=== PATIENT | female | born 1945 | race Caucasian/White ===

== ENCOUNTER 2020-06-08 01:18 | Inpatient (IN) | payer MEDICARE ==
[~2020-06-08] VITALS: Ht 162.6 cm; Wt 44.9 kg
[2020-06-08] MEDS ORDERED: ALBUTEROL1.25 MG/3 INH (03:51)
[2020-06-08] MEDS ORDERED: FLUOXETINE HCL40 MG PO (04:12)
[2020-06-08] MEDS ORDERED: LIPITOR80 MG PO (04:13)
[2020-06-08] MEDS ORDERED: ALENDRONATE SOD70 MG PO (04:14)
[2020-06-08] MEDS ORDERED: NITRO-DUR1 EAC3 TOP (04:14)
[2020-06-08] MEDS ORDERED: BUPROPION HCL100 MG PO (04:15)
[2020-06-08] MEDS ORDERED: TIKOSYN125 MCG PO (04:15)
[2020-06-08] MEDS ORDERED: DOXEPIN HCL75 MG PO (04:15)
[2020-06-08] MEDS ORDERED: SINGULAIR10 MG PO (04:16)
[2020-06-08] MEDS ORDERED: PROAIR DIGIHAL90 MCG INH (04:17)
[2020-06-08] MEDS ORDERED: CLARITIN10 M2 PO (04:17)
[2020-06-08] MEDS ORDERED: ELIQUIS2.5 MG PO (04:17)
[2020-06-08] MEDS ORDERED: DALIRESP500 MCG PO (04:17)
[2020-06-08] MEDS ORDERED: BREO ELLIPTA 21 EACH INH (04:18)
[2020-06-08 05:04] LABS: HEMOGLOBIN 9.3 gm/dl (12.3-15.3); RED BLOOD COUNT 3.6 M/UL (4.00-5.10); WHITE BLOOD COUNT 25.7 K/UL (4.5-11.0)
[2020-06-09 06:26] LABS: HEMOGLOBIN 8.5 gm/dl (12.3-15.3); RED BLOOD COUNT 3.44 M/UL (4.00-5.10)
[2020-06-09 06:29] LABS: WHITE BLOOD COUNT 18.9 K/UL (4.5-11.0)
--- NOTE | 2020-06-09 14:23 | NUR ---
06/09/20 1347 CALLED PATIENTS EMERGENCY CONTACT, SLIME DHALIWAL ([employer]). NOTIFIED SLIME OF PATIENTS CONDITION AND DYSRHYTHMIAS. SLIME STATED THAT SHE WANTS TO KEEP PATIENT A FULL CODE.
[2020-06-10 05:07] LABS: HEMOGLOBIN 8.9 gm/dl (12.3-15.3); RED BLOOD COUNT 3.45 M/UL (4.00-5.10)
[2020-06-10 05:08] LABS: WHITE BLOOD COUNT 27.1 K/UL (4.5-11.0)
[2020-06-10 05:19] LABS: BUN/CREATININE RATIO 16 (0-10)
[2020-06-11 05:22] LABS: HEMOGLOBIN 8.6 gm/dl (12.3-15.3); RED BLOOD COUNT 3.32 M/UL (4.00-5.10); WHITE BLOOD COUNT 23.1 K/UL (4.5-11.0)
[2020-06-11 05:34] LABS: BUN/CREATININE RATIO 22 (0-10)
[2020-06-12 03:52] LABS: HEMOGLOBIN 8.3 gm/dl (12.3-15.3); RED BLOOD COUNT 3.29 M/UL (4.00-5.10); WHITE BLOOD COUNT 20.6 K/UL (4.5-11.0)
[2020-06-12 04:03] LABS: BUN/CREATININE RATIO 27 (0-10)
[2020-06-13 05:27] LABS: RED BLOOD COUNT 3.16 M/UL (4.00-5.10); WHITE BLOOD COUNT 15.6 K/UL (4.5-11.0)
[2020-06-13 05:32] LABS: BUN/CREATININE RATIO 34 (0-10)
[2020-06-14 05:02] LABS: HEMOGLOBIN 8.6 gm/dl (12.3-15.3); RED BLOOD COUNT 3.4 M/UL (4.00-5.10); WHITE BLOOD COUNT 25.6 K/UL (4.5-11.0)
[2020-06-14 05:12] LABS: BUN/CREATININE RATIO 40 (0-10)
[2020-06-15 05:15] LABS: HEMOGLOBIN 8.6 gm/dl (12.3-15.3); RED BLOOD COUNT 3.39 M/UL (4.00-5.10); WHITE BLOOD COUNT 20.5 K/UL (4.5-11.0)
[2020-06-15 05:41] LABS: BUN/CREATININE RATIO 41 (0-10)
--- NOTE | 2020-06-15 16:12 | NUR ---
LETTER STATING THAT PT IS MEDICALLY UNABLE TO MAKE DECISIONS SIGNED BY DR KOVACS WAS GIVEN TO FAMILY (NIECE SLIME) 06/15/20
[2020-06-16 05:20] LABS: HEMOGLOBIN 8.7 gm/dl (12.3-15.3); RED BLOOD COUNT 3.39 M/UL (4.00-5.10); WHITE BLOOD COUNT 17.4 K/UL (4.5-11.0)
[2020-06-16 05:59] LABS: BUN/CREATININE RATIO 29 (0-10)
[2020-06-17 04:40] LABS: HEMOGLOBIN 8.4 gm/dl (12.3-15.3); RED BLOOD COUNT 3.3 M/UL (4.00-5.10); WHITE BLOOD COUNT 14.7 K/UL (4.5-11.0)
[2020-06-17 04:58] LABS: BUN/CREATININE RATIO 32 (0-10)
[2020-06-18 05:02] LABS: RED BLOOD COUNT 3.14 M/UL (4.00-5.10); WHITE BLOOD COUNT 14.2 K/UL (4.5-11.0)
[2020-06-18 05:53] LABS: BUN/CREATININE RATIO 31 (0-10)
[2020-06-19 05:04] LABS: HEMOGLOBIN 8.1 gm/dl (12.3-15.3); RED BLOOD COUNT 3.17 M/UL (4.00-5.10); WHITE BLOOD COUNT 14.4 K/UL (4.5-11.0)
[2020-06-19 05:28] LABS: BUN/CREATININE RATIO 34 (0-10)
--- NOTE | 2020-06-19 17:46 | NUR ---
PT DESAT <60% SUSTAINED; PT PLACED ON BIPAP AND FAMILY NOTIFIED OF DECLINING IN PT STATUS; FAMILY REQUESTING COMFORT MEASURES ONLY; DR GOODE NOTIFIED OF FAMILY WISHES AND COMFORT CARE ORDERS PLACED.
== END 2020-06-21 11:07 | disposition expired | DRG 870 ==
LOC: CCU 01:18
PROVIDERS: Internal Medicine; Internal Medicine Pulmonary Disease; ADMIT Internal Medicine
PROC: 5A1955Z Respiratory Ventilation, Greater than 96 Consecutive Hours (ICD-10-PCS; principal; 2020-06-08)
PROC: 3E033XZ Introduction of Vasopressor into Peripheral Vein, Percutaneous Approach (ICD-10-PCS; 2020-06-08)
PROC: 5A2204Z Restoration of Cardiac Rhythm, Single (ICD-10-PCS; 2020-06-10)
DX: A41.01 Sepsis due to Methicillin susceptible Staphylococcus aureus (principal); R65.21 Severe sepsis with septic shock; J96.21 Acute and chronic respiratory failure with hypoxia; E43 Unspecified severe protein-calorie malnutrition; J96.22 Acute and chronic respiratory failure with hypercapnia; I50.23 Acute on chronic systolic (congestive) heart failure; J13 Pneumonia due to Streptococcus pneumoniae; J15.211 Pneumonia due to Methicillin susceptible Staphylococcus aureus; I48.19 Other persistent atrial fibrillation; Z68.1 Body mass index [BMI] 19.9 or less, adult; E87.2 Acidosis; J44.1 Chronic obstructive pulmonary disease with (acute) exacerbation; J44.0 Chronic obstructive pulmonary disease with (acute) lower respiratory infection; I42.9 Cardiomyopathy, unspecified; Z51.5 Encounter for palliative care; Z66 Do not resuscitate; I48.0 Paroxysmal atrial fibrillation; R57.0 Cardiogenic shock; G89.29 Other chronic pain; F03.90 Unspecified dementia, unspecified severity, without behavioral disturbance, psychotic disturbance, mood disturbance, and anxiety; F32.9 Major depressive disorder, single episode, unspecified; F41.9 Anxiety disorder, unspecified; M81.0 Age-related osteoporosis without current pathological fracture; W10.9XXA Fall (on) (from) unspecified stairs and steps, initial encounter; Z96.642 Presence of left artificial hip joint; F17.200 Nicotine dependence, unspecified, uncomplicated; S20.211A Contusion of right front wall of thorax, initial encounter; T42.75XA Adverse effect of unspecified antiepileptic and sedative-hypnotic drugs, initial encounter; N18.30 Chronic kidney disease, stage 3 unspecified; I25.10 Atherosclerotic heart disease of native coronary artery without angina pectoris; D50.9 Iron deficiency anemia, unspecified; I95.2 Hypotension due to drugs; T41.295A Adverse effect of other general anesthetics, initial encounter; Z90.710 Acquired absence of both cervix and uterus; Z99.81 Dependence on supplemental oxygen; Z79.01 Long term (current) use of anticoagulants; Z90.49 Acquired absence of other specified parts of digestive tract; Z88.0 Allergy status to penicillin; Z79.891 Long term (current) use of opiate analgesic; Z79.899 Other long term (current) drug therapy; Z88.8 Allergy status to other drugs, medicaments and biological substances; Z88.2 Allergy status to sulfonamides
CPT/HCPCS: ECHO; 36415; 36600; 70450; 71045; 74018; 80048; 80053; 80307; 81001; 82140; 82550; 82553; 82607; 82746; 82803; 83605; 83735; 84439; 84443; 84484; 85007; 85025; 85027; 86140; 87040; 87070; 87077; 87086; 87186; 87205; 93005; 93306; 93925; 94002; 94003; 94640; 94660; 94664; 94760; A6212; C9113; J0690; J1120; J1160; J1205; J1335; J1940; J2060; J2250; J2270; J2370; J2704; J2920; J3475; J7030; J7040; J7050; P9047